=== PATIENT | female | born 1975 | race Asian ===

== ENCOUNTER 2018-08-21 19:30 | Emergency (ER) | payer MEDICAID, SELFPAY ==
[2018-08-21 19:47] VITALS: BP 115/60; PULSE 80; RESP 24; TEMP 36.3; O2SAT 99
--- NOTE | 2018-08-21 20:25 | DI.RAD_ITS ---
SYMPTOM/DIAGNOSIS: COUGH PA AND LATERAL CHEST: Comparison is made with 05/12/09. The heart is normal in size. The lungs are clear. The mediastinal structures and pleura appear intact. CONCLUSION: Normal chest.
--- NOTE | 2018-08-21 20:32 | W.ED.GENAD ---
Discharge Plan Disposition Patient Disposition: HOME Condition: Good Discharge Details Chief Complaint: Fever Clinical Impression: Cough Primary Care Provider: Madhavi Hernandez ED Provider: Arnulfo Talbot Home Meds and New Rx's Prescriptions: New codeine-guaifenesin [Guaifenesin AC] 10-100 mg/5 mL liquid 5 ml PO Q6H Qty: 120 RF: 0 No Action benzonatate 100 mg Capsule 100 mg PO RF: 0 azithromycin [Zithromax] 250 mg Tablet 250 mg PO DAILY AM RF: 0 ibuprofen [Advil] 200 mg Tablet 400 mg PO PRN PRNRF: 0 Discharge Instructions Instructions: Acute Cough (ED) Additional Instructions: Your chest x-ray shows no evidence of severe pneumonia. Please continue taking your home medications, and azithromycin. Please also take the guaifenesin with codeine. If you notice any worsening of your symptoms, or any new symptoms such as vomiting, diarrhea, fever, chills, shortness of breath, chest pain, numbness, weakness, or fainting , please return immediately to the emergency department for reevaluation. Please follow up with your primary care provider as soon as possible for reassessment and reevaluation. As always, it was a pleasure participating in your medical care today. Referrals: Madhavi Hernandez [Primary Care Provider] - Medical Decision Making This is a pleasant 43-year-old female who presents today for evaluation of cough for the last week, worse in the last 3 days, with associated chills and fevers earlier. She was prescribed azithromycin and Tessalon Perles by her PCP and is taken 2 days of these as directed, she has had no significant improvement of her symptoms. Denies PE risk factors such as recent long car rides, immobilization, recent surgery, prior history of DVT or PE, family history of PE or DVT, morbid obesity, exogenous estrogen and smoking, hemoptysis, history of cancer. She denies any exposure to TB risk factors for this. Her does smoke. Exam demonstrates notably clear lungs, a near continuous dry cough. She is not on an TOYA inhibitor or ARB. No calf tenderness. Signs and symptoms are concerning for atypical pneumonia. We will get a chest x-ray, give lidocaine breathing treatment, and Robitussin with codeine. Vital signs are notably unremarkable, physical exam is very reassuring. 9 PM Patient is feeling much better after the inhaled lidocaine, as well the Robitussin with codeine. Chest x-ray results per virtual radiology show no evidence of acute pneumonia or process. I suspect his symptoms still from an atypical etiology, and recommend continuation of the azithromycin. No clinical evidence of a pulmonary embolism at this time as her signs and symptoms are clinically inconsistent with it. No other significant abnormality. We will give Rajiv with codeine for home use, recommend continuation of her medications at home. We discussed importance of close follow-up with her PCP. I have extensively reviewed the treatment plan and discharge instructions with the patient. I have addressed all patient concerns at this time. The patient was made aware of what symptoms to monitor for that would warrant a return to the emergency department. Discussed the plan with the patient, they demonstrate verbal understanding and agreement with our assessment and plan at this time. FINDINGS: There are no old studies available for comparison. The lungs are clear of infiltrate. There are no pleural effusions or pneumothorax. The heart size and pulmonary vascularity are normal. IMPRESSION: No active disease. Dictated and Authenticated by: Rob Zelaya MD. Ordering:JAYNA Arredondo MD HPI General Date/Time Provider Initiated Documentation: 08/21/18 19:57. HPI Narrative: This is a 43-year-old female with no significant past medical history who presents today with complaints of cough for the last week. Is been notably worse in the last 3 days. She did see her PCP 2 days ago and was prescribed azithromycin for which she has been taking as directed as well as Tessalon Perles. This is not been improving her symptoms. She does admit to mild fever earlier yesterday, and mild chills, but this is resolved. Her main complaint is the frequency and severity of her cough. She denies any red flags of hemoptysis or productivity, but continues to have a notably dry nonproductive cough that keeps her from sleeping at night, to become notably bothersome. She denies any tobacco use but her does smoke. She did recently come back from [facility] about a week ago, but denies any exposure to presents, TB wards, or other hospital systems. She denies any other complaints modifying factors. She does admit to annually getting symptoms similar to this, but it has not been this severe for quite some time. Of note she did take a breathing treatment at home once with an inhaler and this did not change her symptoms. Related Data Home Medications Medication Instructions Recorded Confirmed azithromycin [Zithromax] 250 mg PO DAILY AM 08/21/18 08/21/18 benzonatate 100 mg PO 08/21/18 codeine-guaifenesin [Guaifenesin 5 ml PO Q6H #120 ml 08/21/18 AC] ibuprofen [Advil] 400 mg PO PRN PRN 08/21/18 08/21/18 Previous Rx's Medication Instructions Recorded codeine-guaifenesin [Guaifenesin 5 ml PO Q6H #120 ml 08/21/18 AC] Allergies Allergy/AdvReac Type Severity Reaction Status Date / Time fruits AdvReac Intermediate throat and Uncoded 08/21/18 19:51 ears get itchy General Stated Complaint: Fever OSVALDO: 3 Review of Systems Review of Systems All systems reviewed & are unremarkable except as noted in HPI and below PFSH Social History Smoking/Tobacco Use Status: Never Do you feel safe in your relationship?: Yes Exam Narrative Exam Narrative: 1.Const: Well-nourished, Well-developed, appearing stated age 2.Eyes: PERRL, no conjunctival injection, and symmetrical lids. 3.ENT: Atraumatic external nose and ears. Moist MM. Neck: Symmetric, trachea midline, No thyromegaly. 4.CVS: +S1/S2, No murmurs or gallops. Peripheral pulses 2+ and equal in all extremities. Brisk capillary refill in all extremities. 5.RESP: Unlabored respiratory effort. Clear to auscultation bilaterally. No wheezes rales or rhonchi 6.GI: Soft, Nontender/Nondistended, No hepatosplenomegaly. No guarding or rebound. 7.MSK: Normocephalic/Atraumatic, Extremities w/o deformity or ttp No cyanosis or clubbing, Normal movement of all extremities, no calf tenderness, no pitting edema 8.Skin: Warm, Dry. No rashes or lesions. 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 Sensation grossly intact, no focal neurologic deficits. 10.Psych: (AAO) x3. Appropriate mood and affect Course Vital Signs Temperature 36.3 C L 08/21/18 19:47 Pulse 80 08/21/18 19:47 Respiratory Rate 24 /10/19 19:47 Blood Pressure 115/60 08/21/18 19:47 Pulse Oximetry 99 08/21/18 19:47 Temperature 36.3 C L 08/21/18 19:47 Temperature Source Temporal Artery Scan 08/21/18 19:47 Pulse 80 08/21/18 19:47 Respiratory Rate 24 08/21/18 19:47 Blood Pressure 115/60 08/21/18 19:47 Blood Pressure Position Sitting 08/21/18 19:47 Pulse Oximetry 99 08/21/18 19:47 Oxygen Delivery Method Room Air 08/21/18 19:47 Oxygen Flow Rate 0 08/21/18 19:47 Pain Level 7 08/21/18 19:47
[2018-08-21] MEDS: guaiFENesin/CODEINE PHOSPHATE 10 ML CUP PO (21:01)
--- NOTE | 2018-08-21 21:04 | DI.VRAD_ITS ---
EXAM: XR Chest, 2 Views EXAM DATE/TIME: 08/21/2018 8:09 PM CLINICAL HISTORY: 43 years old, female; Patient HX: Cough x 7days, non productive, non smoker TECHNIQUE: Imaging protocol: XR of the chest, 2 views. COMPARISON: No relevant prior studies available. FINDINGS: There are no old studies available for comparison. The lungs are clear of infiltrate. There are no pleural effusions or pneumothorax. The heart size and pulmonary vascularity are normal. IMPRESSION: No active disease. Dictated and Authenticated by: Rob Zelaya MD. Ordering:JAYNA Arredondo MD
== END 2018-08-21 21:37 | disposition home or self-care (01) ==
PROVIDERS: Emergency Provider Student in an Organized Health Care Education/Training Program; PCP Nurse Practitioner Family
DX: R05 Cough (principal); R50.9 Fever, unspecified
CPT/HCPCS: 99283; 71046

== ENCOUNTER 2019-05-13 08:25 | Outpatient (REF) | payer MEDICAID, SELFPAY ==
[2019-05-13 19:11] LABS: ALT 32 U/L (14-59); AST 22 U/L (15-37); Alkaline Phosphatase 46 U/L (46-116); Anion Gap 5.9 mmol/L (3-11); BUN 12 mg/dL (7-18); Bilirubin, Total 0.4 mg/dL (0.2-1.0); CO2 31.1 mmol/L (21.0-32.0); CREATININE 0.72 mg/dL (0.55-1.02); Calcium 8.9 mg/dL (8.5-10.1); Chloride 105 mmol/L (98-107); Glucose 89 mg/dL (74-106); Potassium 3.7 mmol/L (3.5-5.1); Sodium 142 mmol/L (136-145); Total Protein 7.4 g/dL (6.4-8.2)
== END 2019-05-13 08:45 ==
LOC: NCHCN 08:25
PROVIDERS: PCP Nurse Practitioner Family; Visit Provider Nurse Practitioner Family
DX: Z13.228 Encounter for screening for other metabolic disorders (principal); Z00.00 Encounter for general adult medical examination without abnormal findings
CPT/HCPCS: 80053

== ENCOUNTER 2020-06-02 18:06 | Outpatient (REF) | payer MEDICAID, SELFPAY ==
--- NOTE | 2020-06-02 11:21 | PAPFT_PTH ---
PATIENT: Juan M Barfield LOC: [facility] U#:[id number] AGE/SX: 45/F ROOM: RE06/02/[address]: Madhavi Hernandez : 1975 BED: DIS: 06/02/2020 SPEC #: [id number] RECD: 06/02/20 18:13 STATUS: ANISA REQ #: [id number] VANESSA: 06/02/20 11:[address]: Madhavi Hernandez DEPT: [facility] Cytology RECD BY: Lauren Collins Tissues: 1 - CX/ENDOCX FOR PAP SMEARS Procedures: PAP THIN PREP/UVM Screening Comments: [id number]
[2020-06-02 18:10] LABS: HGB 13.2 g/dL (11.2-15.7); MCH 28.5 pg (27.0-33.0); MCV 86.4 fL (80-95); Platelet Count 235 10^3/uL (130-400); RBC 4.63 10^6/uL (3.93-5.22); RDW 12.4 % (11.7-14.6); RDW-SD 39.2 fL; WBC 3.55 10^3/uL (4.4-10.8)
[2020-06-02 18:31] LABS: Anion Gap 6.3 mmol/L (3-11); BUN 14 mg/dL (7-18); CO2 29.7 mmol/L (21.0-32.0); CREATININE 0.7 mg/dL (0.55-1.02); Calcium 8.6 mg/dL (8.5-10.1); Calculated LDL 56 mg/dL (<100); Chloride 107 mmol/L (98-107); Cholesterol 125 mg/dL (<200); Glucose 88 mg/dL (74-106); HDL Cholesterol 57 mg/dL (40-60); Potassium 3.9 mmol/L (3.5-5.1); Sodium 143 mmol/L (136-145); Triglyceride 60 mg/dL (<150)
== END 2020-06-02 18:07 | disposition home or self-care (01) ==
LOC: NCHCN 18:06
PROVIDERS: PCP Nurse Practitioner Family; Visit Provider Nurse Practitioner Family
DX: Z12.4 Encounter for screening for malignant neoplasm of cervix (principal); Z13.220 Encounter for screening for lipoid disorders; Z13.228 Encounter for screening for other metabolic disorders; Z00.00 Encounter for general adult medical examination without abnormal findings
CPT/HCPCS: 80048; 80061; 85027; 88142

== ENCOUNTER 2020-09-28 17:02 | Outpatient (REF) | payer MEDICAID, SELFPAY ==
[2020-09-28 19:21] LABS: Abs Immature Grans 0.01 10^3/uL (0.0-0.06); Absolute Basophil Count 0.01 10^3/uL (0.0-0.2); Absolute Eosinophil Count 0.02 10^3/uL (0.0-0.7); Absolute Lymphocyte Count 0.72 10^3/uL (1.2-3.4); Absolute Monocyte Count 0.45 10^3/uL (0.1-0.8); Absolute Neutrophil Count 5.22 10^3/uL (1.2-6.7); Basophils % 0.2; Eosinophils % 0.3; HCT 37.5 % (36.0-46.0); HGB 12.6 g/dL (11.2-15.7); Immature Grans % 0.2; Lymphocytes % 11.2; MCH 27.9 pg (27.0-33.0); MCHC 33.6 % (32.0-36.0); MCV 83.1 fL (80-95); MPV 11.2 fL (8.0-11.0); Neutrophils % 81.1; Nucleated RBC 0 %; Platelet Count 213 10^3/uL (130-400); RBC 4.51 10^6/uL (3.93-5.22); RDW 12.6 % (11.7-14.6); RDW-SD 38.2 fL; WBC 6.43 10^3/uL (4.4-10.8)
== END 2020-09-28 17:03 | disposition home or self-care (01) ==
LOC: NCHCN 17:02
PROVIDERS: PCP Nurse Practitioner Family; Visit Provider Nurse Practitioner Family
DX: N10 Acute pyelonephritis (principal)
CPT/HCPCS: 87077; 85025; 87086; 87186

== ENCOUNTER 2020-09-29 15:06 | Observation (INO) | payer MEDICAID, SELFPAY ==
--- NOTE | 2020-09-29 15:39 | ED.GENADUL_ITS ---
Discharge Plan Disposition Patient Disposition: [facility] INPATIENT Condition: Stable Discharge Details Clinical Impression: Pyelonephritis, Fever, Back pain Admit Date/Time: 09/29/20 18:19 Admit Provider: Sami Buchanan Attending Provider: Sami Buchanan Primary Care Provider: Madhavi Hernandez ED Provider: Amy Sebastian Medical Decision Making 45-year-old mandarin speaking female presents with UTI symptoms, lower back pain, fever, headache for the past few weeks and sent by PCP for possible pyelonephritis. History obtained through language line. Temp 97.9 on arrival. Patient appears uncomfortable but nontoxic. No meningeal signs. Abdomen soft nontender. No CVA tenderness. Suspect most likely UTI versus pyelonephritis. Suspect most likely her headache and neck pain likely secondary to somatic referred pain/musculoskeletal/myalgais and dehydration. Will place an IV, bolus IV fluids, screening labs, urinalysis and CT abdomen/pelvis. Will give Toradol and Phenergan and reassess. Labs and imaging reviewed. White blood cell count normal at 8. Urinalysis notes 10-20 WBCs, trace leukocyte esterase, with rare bacteria and negative nitrates - these findings may be due to her doses of Cipro. Urine culture sent. CT abdomen and pelvis noted: IMPRESSION: Abnormal right renal nephrogram with foci of low attenuation in the anterior and posterior renal cortex, suggestive of pyelonephritis. Results given to patient through language line. She states her headache and neck pain are resolved but still has some lower back pain and feels fatigued. Will admit for pain control, IV antibiotics, IV fluids and continued monitoring. Case discussed with hospitalist who accepts patient for admission. Medical Records Medical records reviewed: Yes I reviewed the patient's medical records. Imaging Data Radiologic Study: Radiologist's impression: CT Abdomen And Pelvis With Contrast Exam date and time: 09/29/2020 4:12 PM Age: 45 years old Clinical indication: Other: Lower back pain, dysuria, fever, R/O pyelo, stone TECHNIQUE: Imaging protocol: Computed tomography of the abdomen and pelvis with contrast. Radiation optimization: All CT scans at this facility use at least one of these dose optimization techniques: automated exposure control; mA and/or kV adjustment per patient size (includes targeted exams where dose is matched to clinical indication); or iterative reconstruction. Contrast material: OMNIPAQUE; Contrast volume: 100 ml; Contrast route: INTRAVENOUS (IV); COMPARISON: CT ABD PELVIS WITH CONTRAST 08/06/2017 4:52 PM FINDINGS: Lungs: The visualized lung bases are clear. Liver: There is a subcentimeter low density lesion in the dome of the liver which is too small to characterize. No evidence for a mass. Gallbladder and bile ducts: Unremarkable. No calcified stones. No ductal dilation. Pancreas: Unremarkable. No ductal dilation. Spleen: Unremarkable. No splenomegaly. Adrenal glands: Unremarkable. No mass. Kidneys and ureters: There is abnormal right nephrogram with abnormal low attenuation in the anterior and posterior renal cortex suggestive of pyelonephritis. There is no hydronephrosis. Stomach and bowel: Unremarkable. No obstruction. No mucosal thickening. Appendix: No evidence of appendicitis. Intraperitoneal space: Unremarkable. No free air. No significant fluid collection. Vasculature: Unremarkable. No abdominal aortic aneurysm. Lymph nodes: Unremarkable. No enlarged lymph nodes. Urinary bladder: Unremarkable as visualized. Reproductive: The uterus is enlarged and heterogeneous likely due to fibroids. Bones/joints: Unremarkable. No acute fracture. Soft tissues: Unremarkable. IMPRESSION: Abnormal right renal nephrogram with foci of low attenuation in the anterior and posterior renal cortex, suggestive of pyelonephritis. Lab Data Lab results reviewed: Yes I reviewed the patient's lab results. Labs: 09/29/20 16:25 Urine - Reflex from Ua Urine Culture - Pending Laboratory Tests Range/Units 09/29/20 09/29/20 09/29/20 15:30 16:10 16:10 WBC (4.4-10.8) 10^3/uL 8.19 RBC (3.93-5.22) 10^6/uL 4.50 Hgb (11.2-15.7) g/dL 12.6 Hct (36.0-46.0) % 37.8 MCV (80-95) fL 84.0 MCH (27.0-33.0) pg 28.0 MCHC (32.0-36.0) % 33.3 RDW (11.7-14.6) % 12.5 Plt Count (130-400) 10^3/uL 196 MPV (8.0-11.0) fL 10.3 Immature Gran % 0.5 Neutrophils % 78.3 Lymphocytes % 9.9 Monocytes % 11.1 Eosinophils % 0.0 Basophils % 0.2 Nucleated RBC % % 0 Absolute Neutrophils (1.2-6.7) 10^3/uL 6.41 Absolute Lymphocytes (1.2-3.4) 10^3/uL 0.81 L Absolute Monocytes (0.1-0.8) 10^3/uL 0.91 H Absolute Eosinophils (0.0-0.7) 10^3/uL 0.00 Absolute Basophils (0.0-0.2) 10^3/uL 0.02 Sodium (136-145) mmol/L 135 L Potassium (3.5-5.1) mmol/L 3.6 Chloride (98-107) mmol/L 100 Carbon Dioxide (21.0-32.0) mmol/L 27.5 Anion Gap (3-11) mmol/L 7.5 BUN (7-18) mg/dL 10 Creatinine (0.55-1.02) mg/dL 0.8 Estimated GFR/1.73 m2 (mL/min/1.73m2) >= 60.00 Glucose (74-106) mg/dL 110 H Calcium (8.5-10.1) mg/dL 8.4 L Total Bilirubin (0.2-1.0) mg/dL 0.5 AST (15-37) U/L 12 L ALT (14-59) U/L 20 Alkaline Phosphatase (46-116) U/L 53 Total Protein (6.4-8.2) g/dL 7.7 Albumin (3.4-5.0) g/dL 3.3 L Lipase (73-393) U/L 84 Urine Color (Yellow) Urine Clarity (Clear) Urine pH (5-8) Ur Specific [place] (1.005-1.025) Urine Protein (Negative) mg/dL Urine Ketones (Negative) mg/dL Urine Blood (Negative) Urine Nitrite (Negative) Urine Bilirubin (Negative) Urine Urobilinogen (Up TO 0.2) EU/dL Ur Leukocyte Esterase (Negative) Urine RBC (0-2) HPF Urine WBC (0-5) HPF Ur Epithelial Cells (Negative) HPF Urine Crystals (Negative) HPF Urine Bacteria (Negative) HPF Urine Mucus (Negative) Urine Other (Negative) Ur Culture Indicated? Urine Glucose (Negative) mg/dL COVID-19 Source Nasal/Nares SARS-CoV-2 (PCR) (Negative) Negative Range/Units 09/29/20 16:25 WBC (4.4-10.8) 10^3/uL RBC (3.93-5.22) 10^6/uL Hgb (11.2-15.7) g/dL Hct (36.0-46.0) % MCV (80-95) fL MCH (27.0-33.0) pg MCHC (32.0-36.0) % RDW (11.7-14.6) % Plt Count (130-400) 10^3/uL MPV (8.0-11.0) fL Immature Gran % Neutrophils % Lymphocytes % Monocytes % Eosinophils % Basophils % Nucleated RBC % % Absolute Neutrophils (1.2-6.7) 10^3/uL Absolute Lymphocytes (1.2-3.4) 10^3/uL Absolute Monocytes (0.1-0.8) 10^3/uL Absolute Eosinophils (0.0-0.7) 10^3/uL Absolute Basophils (0.0-0.2) 10^3/uL Sodium (136-145) mmol/L Potassium (3.5-5.1) mmol/L Chloride (98-107) mmol/L Carbon Dioxide (21.0-32.0) mmol/L Anion Gap (3-11) mmol/L BUN (7-18) mg/dL Creatinine (0.55-1.02) mg/dL Estimated GFR/1.73 m2 (mL/min/1.73m2) Glucose (74-106) mg/dL Calcium (8.5-10.1) mg/dL Total Bilirubin (0.2-1.0) mg/dL AST (15-37) U/L ALT (14-59) U/L Alkaline Phosphatase (46-116) U/L Total Protein (6.4-8.2) g/dL Albumin (3.4-5.0) g/dL Lipase (73-393) U/L Urine Color (Yellow) Yellow Urine Clarity (Clear) Clear Urine pH (5-8) 7.0 Ur Specific [place] (1.005-1.025) 1.025 Urine Protein (Negative) mg/dL 30 H Urine Ketones (Negative) mg/dL Negative Urine Blood (Negative) Large H Urine Nitrite (Negative) Negative Urine Bilirubin (Negative) Negative Urine Urobilinogen (Up TO 0.2) EU/dL 0.2 Ur Leukocyte Esterase (Negative) Trace H Urine RBC (0-2) HPF 5-10 H Urine WBC (0-5) HPF 10-20 H Ur Epithelial Cells (Negative) HPF Moderate Urine Crystals (Negative) HPF Negative Urine Bacteria (Negative) HPF Rare Urine Mucus (Negative) Negative Urine Other (Negative) Few Transitional Ur Culture Indicated? Yes Urine Glucose (Negative) mg/dL Negative COVID-19 Source SARS-CoV-2 (PCR) (Negative) HPI General Mode of arrival: ambulatory . Date/Time Provider Initiated Documentation: 09/29/20 15:11 . Limitations to Documentation: no limitations . Information obtained by: patient . HPI Narrative: Patient is a 45-year-old female with a previous history of pyelonephritis a few years ago who presents w ith urinary frequency and urgency and lower back pain for the past 2 weeks, and fever 101.7 yesterday. Patient states she has also had intermittent headache and neck pain. Her primary care doctor started her on Cipro yesterday for possible UTI or pyelonephritis. She states she took her doses yesterday and took 1 this morning but vomited right after. She has not taken any Tylenol or ibuprofen today. She denies any chest pain, shortness of breath, coughing or diarrhea. She states she is fully vaccinated and denies any known exposure to Covid or recent travel. Related Data Home Medications Medication Instructions Recorded Confirmed ibuprofen [Advil] 400 mg PO PRN PRN 08/21/18 09/29/20 ciprofloxacin HCl [Cipro] 500 mg PO BID 09/29/20 09/29/20 Allergies Allergy/AdvReac Type Severity Reaction Status Date / Time fruits AdvReac Intermediate throat and Uncoded 09/29/20 15:49 ears get itchy General OSVALDO: 3 Review of Systems All systems reviewed & are unremarkable except as noted in HPI and below Constitutional Constitutional: Reports as per HPI, Denies chills and Denies fever(s) Eyes Eyes: Denies blurry vision ENT Ears, Nose, Mouth, and Throat: Denies dizziness, Denies sore throat and Denies throat swelling Cardiovascular Cardiovascular: Denies chest pain and Denies dyspnea Respiratory Respiratory: Denies cough and Denies dyspnea Gastrointestinal Gastrointestinal: Denies abdominal pain, Denies diarrhea and Denies vomiting Genitourinary Genitourinary: Denies hematuria, Reports difficulty voiding, Reports dysuria, Reports urinary hesitancy and Reports urinary urgency Musculoskeletal Musculoskeletal: Reports back pain and Denies numbness Integumentary/Breasts Skin/Breast: Denies lesions and Denies rash Neurologic Neurologic: Denies dizziness, Denies localized weakness and Denies numbness Allergic/Immunologic Allergic/Immunologic: Denies throat swelling PFSH Medical History Pyelonephritis Surgical History H/O section Social History Smoking/Tobacco Use Status: Never Smoking risk assessment performed?: Yes Alcohol Intake: never Drug use: Never Substance use type: does not use Do you feel safe at home: Yes Do you feel safe in your relationship?: Yes Exam Const General: cooperative and no acute distress Orientation: alert, awake and oriented x3 HENMT Head: normal to inspection Mouth: oral mucosae normal Eyes General: appearance normal, both eyes and all related structures Neck Neck: normal visual inspection Resp Effort & Inspection: normal respiratory effort and able to speak in complete sentences Auscultation: clear to auscultation bilaterally Cardio Rate: regular rate Rhythm: regular rhythm GI Inspection: normal to inspection Palpation: soft, not firm, not rigid and nontender Auscultation: no hypoactive bowel sounds Back/Spine/Pelvis Back: No no CVA tenderness Thoracic/Lumbar Spine: thoracic and lumbar spine normal to inspection Skin General skin exam: no rashes or lesions noted Neuro General: patient alert, patient awake, patient oriented x3, moves all extremities, no meningeal signs and no focal motor deficits Motor: muscle tone normal throughout and strength 5/5 throughout Extrem General: normal to inspection, full ROM, capillary refill normal and no edema Psych Appearance: grossly normal Affect: normal affect
[2020-09-29 15:42] LABS: Source Nasal/Nares
[2020-09-29 15:43] VITALS: BP 106/52; PULSE 98; RESP 18; TEMP 36.6; O2SAT 99
--- NOTE | 2020-09-29 16:00 | DI.CT_ITS ---
Exam(s) CT ABDOMEN PELVIS W EXAM: CT ABDOMEN PELVIS W CLINICAL HISTORY: lower back pain, dysuria, fever, r/o pyelo, stone. TECHNIQUE: Imaging Protocol: Axial computed tomography images with coronal and sagittal reformatted images were created and reviewed CONTRAST MATERIAL: Intravenous: Omnipaque 100cc Oral: None COMPARISON: CT ABD PELVIS WITH CONTRAST from 08/06/2017 FINDINGS: VISUALIZED LUNG BASES: There is a small centrally lucent pleural base nodule in the lateral basal seg ment right lower lobe which measures 5 millimeters, slightly larger than previous. No pleural effusi ons. No additional nodule seen in the lung bases.. ABDOMEN: There is no ascites. LIVER: There is a subcapsular lesion in the superior aspect of the right hepatic lobe which measures 8 x 5 millimeters and is probably a benign hemangioma. No other focal hepatic findings. No dilatati on of intrahepatic ducts. GALLBLADDER/BILIARY: No obvious gallbladder pathology. CBD is not dilated. PANCREAS: No evidence of pancreatic mass nor dilatation of the pancreatic duct. SPLEEN: Spleen is not enlarged. No obvious intrasplenic lesions. Splenic and portal veins are paten t. ADRENALS: There are no significant adrenal masses. KIDNEYS:No significant findings in the left kidney. The common the right kidney there are areas of a bnormal enhancement both inferiorly and anteriorly which are suspicious for infectious etiology. The re are no calculi. No hydronephrosis. No hydroureter.. ABDOMINAL AORTA: Abdominal aorta is not enlarged. LYMPH NODES:There is no retroperitineal nor paraaortic adenopathy. ABDOMINAL WALL: No evidence of significant anterior abdominal wall hernia. GI: There is no evidence of bowel obstruction. PELVIS: GI: No evidence of appendicitis.No evidence of sigmoid diverticulitis. LYMPH NODES: There is no intrapelvic nor inguinal adenopathy. REPRODUCTIVE: Uterus is heterogeneous most probably related to uterine fibroids. URINARY BLADDER: No calculi nor obvious masses evident OSSEOUS: No significant osseous lesions. IMPRESSION: 1. Multilevel abnormal findings in the right kidney with foci of low-attenuation both the anterior an d posterior-inferior renal cortex, suggestive of probable infectious etiology, specifically multifoca l pyelonephritis. Significant risk for renal carbuncle-abscess formation. Close follow-up recommend ed. Opposite-left kidney appears unremarkable. 2. Small subcapsular hemangioma in the superior aspect of the right hepatic lobe noted 3. Small centrally hypodense 5 millimeter nodule again noted in the posterior right lung base. No pl eural effusions RADIATION DOSE DELIVERED: 722.4mGy.cm Total DLP DATA REPOSITORY: All CT scans at this facility are submitted to the National Radiology Data Registry (NRDR) Dose Index Registry (DIR) with the [employer] (A[employer]). RADIATION OPTIMIZATION: All CT scans at this facility use at least one of these dose optimization te chniques: automated exposure control; mA and/or kV adjustment per patient size (includes targeted exa ms where dose is matched to clinical indication); or iterative reconstruction.
[2020-09-29 16:31] LABS: Abs Immature Grans 0.04 10^3/uL (0.0-0.06); Absolute Basophil Count 0.02 10^3/uL (0.0-0.2); Absolute Lymphocyte Count 0.81 10^3/uL (1.2-3.4); Absolute Monocyte Count 0.91 10^3/uL (0.1-0.8); Absolute Neutrophil Count 6.41 10^3/uL (1.2-6.7); Basophils % 0.2; HCT 37.8 % (36.0-46.0); HGB 12.6 g/dL (11.2-15.7); Immature Grans % 0.5; Lymphocytes % 9.9; MCHC 33.3 % (32.0-36.0); MPV 10.3 fL (8.0-11.0); Monocytes % 11.1; Neutrophils % 78.3; Nucleated RBC 0 %; Platelet Count 196 10^3/uL (130-400); RDW 12.5 % (11.7-14.6); WBC 8.19 10^3/uL (4.4-10.8)
[2020-09-29 16:32] LABS: Bilirubin Negative (Negative); Blood Large (Negative); Clarity Clear (Clear); Glucose Negative (Negative); Ketones Negative (Negative); Leukocyte Esterase Trace (Negative); Nitrite Negative (Negative); Specific Gravity 1.025 (1.005-1.025); Urobilinogen 0.2 EU/dL (Up TO 0.2)
[2020-09-29 16:37] LABS: ALT 20 U/L (14-59); AST 12 U/L (15-37); Albumin 3.3 g/dL (3.4-5.0); Alkaline Phosphatase 53 U/L (46-116); Anion Gap 7.5 mmol/L (3-11); BUN 10 mg/dL (7-18); Bilirubin, Total 0.5 mg/dL (0.2-1.0); CO2 27.5 mmol/L (21.0-32.0); CREATININE 0.8 mg/dL (0.55-1.02); Calcium 8.4 mg/dL (8.5-10.1); Chloride 100 mmol/L (98-107); Glucose 110 mg/dL (74-106); Lipase 84 U/L (73-393); Potassium 3.6 mmol/L (3.5-5.1); Sodium 135 mmol/L (136-145); Total Protein 7.7 g/dL (6.4-8.2)
[2020-09-29 16:38] LABS: COVID-19 PCR Negative (Negative)
[2020-09-29] MEDS: Omnipaque 350 MG/ML 100 ML BTL IJ (16:49)
[2020-09-29] MEDS: Normal Saline - Diluent 50 ML VIAL IV (16:50)
[2020-09-29] MEDS: Ketorolac 30 MG/ML VIAL IVP (16:51)
[2020-09-29] MEDS: Normal Saline 1,000 ML 1000 ML IV ×2 (16:51→18:21)
[2020-09-29] MEDS: Normal Saline Flush 10 ML SYR IVP (16:51)
[2020-09-29 17:10] LABS: Epithelial Cells Moderate HPF (Negative)
[2020-09-29 17:11] LABS: Bacteria Rare HPF (Negative); C & S Indicated? Yes; Crystals Negative HPF (Negative); Mucus Negative (Negative); Other Cells Few Transitional (Negative)
--- NOTE | 2020-09-29 17:14 | DI.VRAD_ITS ---
PROCEDURE INFORMATION: Exam: CT Abdomen And Pelvis With Contrast Exam date and time: 09/29/2020 4:12 PM Age: 45 years old Clinical indication: Other: Lower back pain, dysuria, fever, R/O pyelo, stone TECHNIQUE: Imaging protocol: Computed tomography of the abdomen and pelvis with contrast. Radiation optimization: All CT scans at this facility use at least one of these dose optimization techniques: automated exposure control; mA and/or kV adjustment per patient size (includes targeted exams where dose is matched to clinical indication); or iterative reconstruction. Contrast material: OMNIPAQUE; Contrast volume: 100 ml; Contrast route: INTRAVENOUS (IV); COMPARISON: CT ABD PELVIS WITH CONTRAST 08/06/2017 4:52 PM FINDINGS: Lungs: The visualized lung bases are clear. Liver: There is a subcentimeter low density lesion in the dome of the liver which is too small to characterize. No evidence for a mass. Gallbladder and bile ducts: Unremarkable. No calcified stones. No ductal dilation. Pancreas: Unremarkable. No ductal dilation. Spleen: Unremarkable. No splenomegaly. Adrenal glands: Unremarkable. No mass. Kidneys and ureters: There is abnormal right nephrogram with abnormal low attenuation in the anterior and posterior renal cortex suggestive of pyelonephritis. There is no hydronephrosis. Stomach and bowel: Unremarkable. No obstruction. No mucosal thickening. Appendix: No evidence of appendicitis. Intraperitoneal space: Unremarkable. No free air. No significant fluid collection. Vasculature: Unremarkable. No abdominal aortic aneurysm. Lymph nodes: Unremarkable. No enlarged lymph nodes. Urinary bladder: Unremarkable as visualized. Reproductive: The uterus is enlarged and heterogeneous likely due to fibroids. Bones/joints: Unremarkable. No acute fracture. Soft tissues: Unremarkable. IMPRESSION: Abnormal right renal nephrogram with foci of low attenuation in the anterior and posterior renal cortex, suggestive of pyelonephritis. Dictated and Authenticated by: Gordon Schwartz MD. Ordering:FLORIDA Reyes MD
[2020-09-29] MEDS: MORPHine 4 MG/ML SYR IVP (18:20)
[2020-09-29] MEDS: ACETAMINOPHEN 1,000 MG/100 ML BTL 400 MG IVPB (18:20)
[2020-09-29] MEDS: cefTRIAXone 1 GM/50 ML BAG IVPB (18:45)
[2020-09-29 19:30] VITALS: BP 93/57; PULSE 62; RESP 16; TEMP 36.3; O2SAT 99
--- NOTE | 2020-09-29 20:41 | HPE_ITS ---
Date of service: 09/29/20 Time of Service: 20:42 Assessment and Plan Assessment and plan (1) Pyelonephritis: Status: Acute Assessment and plan: Not likely a failure of ciprofloxacin since she essentially had only one dose prior to admission. However, was started on Rocephin in the ED and will continue. She received 2 liters of NS in the ED. Normal BUN and creatinine. Cont NS at 75ml/hr and can likely d/c in the AM. Currently no fluid losses through emesis or diarrhea. Culture pending. PRN IV morphine or Toradol for pain. PRN phenergan for N/V. (2) Discharge planning issues: Status: Acute Assessment and plan: Will likely d/c on oral antibiotics with no other needs than to f/u with PCP. History of Present Illness History of Present Illness Chief Complaint: Low back pain, urinary frequency and urgency Narrative: This is a 45 yo female with a PMH of pyelonephritis 3 years ago. She presented to the ED with appx 2 week history of bilateral low back pain and urinary frequency and urgency. She endorsed a fever of 101.7 the day prior to admission. She presented to her PCP and was started on Ciprofloxacin; 2 doses taken prior to admission. She did vomit immediately after taking the second dose. She also endorsed an intermittent headache and posterior neck pain. No SOA/cough/diarrhea. In the ED her urine was positive for 10-20 WBC's, tr leukocyte esterase, rare bacteria. CT abd/pelvis showed abnormal right renal nephrogram with foci of low attenuation in the anterior and posterior renal cortex, suggestive of pyelonephritis. Rocephin given in the ED. Review of Systems All systems reviewed & are unremarkable except as noted in HPI and below PFSH Medical History Pyelonephritis Surgical History H/O section Social History Smoking/Tobacco Use Status: Never Smoking risk assessment performed?: Yes Alcohol Intake: never Drug use: Never Substance use type: does not use Do you feel safe at home: Yes Do you feel safe in your relationship?: Yes Meds Allergies and Home Medications Allergies Allergy/AdvReac Type Severity Reaction Status Date / Time fruits AdvReac Intermediate throat and Uncoded 09/29/20 15:49 ears get itchy Home Medications Medication Instructions Recorded Confirmed Type ibuprofen [Advil] 400 mg PO PRN PRN 08/21/18 09/29/20 History ciprofloxacin HCl [Cipro] 500 mg PO BID 09/29/20 09/29/20 History Exam Const General: cooperative and no acute distress Nutritional Appearance: thin Orientation: alert and oriented x3 Eyes General: appearance normal, both eyes and all related structures Sclera: sclerae normal Neck Neck: full ROM Resp Effort & Inspection: normal respiratory effort Auscultation: clear to auscultation bilaterally Cardio Rate: regular rate Rhythm: regular rhythm Heart Sounds: S1 normal and S2 normal GI Palpation: soft and nontender Auscultation: normal bowel sounds Back/Spine/Pelvis Back: no CVA tenderness Skin General skin exam: no rashes or lesions noted Extrem General: no pedal edema and no calf tenderness Results Labs Result diagrams: 09/29/20 16:10 09/29/20 16:10 Labs: Laboratory Results - last 24 hr 09/29/20 09/29/20 09/29/20 15:30 16:10 16:10 WBC 8.19 RBC 4.50 Hgb 12.6 Hct 37.8 MCV 84.0 MCH 28.0 MCHC 33.3 RDW 12.5 Plt Count 196 MPV 10.3 Immature Gran % 0.5 Neutrophils % 78.3 Lymphocytes % 9.9 Monocytes % 11.1 Eosinophils % 0.0 Basophils % 0.2 Nucleated RBC % 0 Absolute Neutrophils 6.41 Absolute Lymphocytes 0.81 L Absolute Monocytes 0.91 H Absolute Eosinophils 0.00 Absolute Basophils 0.02 Sodium 135 L Potassium 3.6 Chloride 100 Carbon Dioxide 27.5 Anion Gap 7.5 BUN 10 Creatinine 0.8 Estimated GFR/1.73 m2 >= 60.00 Glucose 110 H Calcium 8.4 L Total Bilirubin 0.5 AST 12 L ALT 20 Alkaline Phosphatase 53 Total Protein 7.7 Albumin 3.3 L Lipase 84 Urine Color Urine Clarity Urine pH Ur Specific [place] Urine Protein Urine Ketones Urine Blood Urine Nitrite Urine Bilirubin Urine Urobilinogen Ur Leukocyte Esterase Urine RBC Urine WBC Ur Epithelial Cells Urine Crystals Urine Bacteria Urine Mucus Urine Other Ur Culture Indicated? Urine Glucose COVID-19 Source Nasal/Nares SARS-CoV-2 (PCR) Negative 09/29/20 16:25 WBC RBC Hgb Hct MCV MCH MCHC RDW Plt Count MPV Immature Gran % Neutrophils % Lymphocytes % Monocytes % Eosinophils % Basophils % Nucleated RBC % Absolute Neutrophils Absolute Lymphocytes Absolute Monocytes Absolute Eosinophils Absolute Basophils Sodium Potassium Chloride Carbon Dioxide Anion Gap BUN Creatinine Estimated GFR/1.73 m2 Glucose Calcium Total Bilirubin AST ALT Alkaline Phosphatase Total Protein Albumin Lipase Urine Color Yellow Urine Clarity Clear Urine pH 7.0 Ur Specific [place] 1.025 Urine Protein 30 H Urine Ketones Negative Urine Blood Large H Urine Nitrite Negative Urine Bilirubin Negative Urine Urobilinogen 0.2 Ur Leukocyte Esterase Trace H Urine RBC 5-10 H Urine WBC 10-20 H Ur Epithelial Cells Moderate Urine Crystals Negative Urine Bacteria Rare Urine Mucus Negative Urine Other Few Transitional Ur Culture Indicated? Yes Urine Glucose Negative COVID-19 Source SARS-CoV-2 (PCR) Last Vital Signs Temp 36.6 C 09/29/20 15:43 Pulse 98 H 09/29/20 15:43 Resp 18 09/29/20 15:43 BP 106/52 L 09/29/20 15:43 Pulse Ox 99 09/29/20 15:43
[2020-09-29] MEDS: Normal Saline 1,000 ML 75 ML IV (20:59)
[2020-09-30 01:00] VITALS: BP 90/53; PULSE 97; RESP 16; TEMP 36.4; O2SAT 99
[2020-09-30 03:57] VITALS: BP 86/56; PULSE 80; RESP 18; TEMP 36.4; O2SAT 99
[2020-09-30] MEDS: Normal Saline 1,000 ML 150 ML IV (05:34)
[2020-09-30 06:59] LABS: Abs Immature Grans 0.01 10^3/uL (0.0-0.06); Absolute Basophil Count 0.01 10^3/uL (0.0-0.2); Absolute Eosinophil Count 0.08 10^3/uL (0.0-0.7); Absolute Lymphocyte Count 0.93 10^3/uL (1.2-3.4); Absolute Monocyte Count 0.69 10^3/uL (0.1-0.8); Absolute Neutrophil Count 3.16 10^3/uL (1.2-6.7); Basophils % 0.2; Eosinophils % 1.6; HCT 33.8 % (36.0-46.0); HGB 11.2 g/dL (11.2-15.7); Immature Grans % 0.2; Lymphocytes % 19.1; MCH 28.1 pg (27.0-33.0); MCHC 33.1 % (32.0-36.0); MCV 84.9 fL (80-95); MPV 10.3 fL (8.0-11.0); Monocytes % 14.1; Neutrophils % 64.8; Nucleated RBC 0 %; Platelet Count 163 10^3/uL (130-400); RBC 3.98 10^6/uL (3.93-5.22); RDW 12.9 % (11.7-14.6); RDW-SD 40.3 fL; WBC 4.88 10^3/uL (4.4-10.8)
[2020-09-30 07:09] LABS: Anion Gap 6.8 mmol/L (3-11); BUN 8 mg/dL (7-18); CO2 26.2 mmol/L (21.0-32.0); CREATININE 0.6 mg/dL (0.55-1.02); Calcium 7.4 mg/dL (8.5-10.1); Chloride 109 mmol/L (98-107); Glucose 100 mg/dL (74-106); Potassium 3.7 mmol/L (3.5-5.1); Sodium 142 mmol/L (136-145)
[2020-09-30] MEDS: Enoxaparin 40 MG/0.4 ML SYR SC (08:05)
[2020-09-30] MEDS: cefTRIAXone 1 GM/50 ML BAG IVPB (08:05)
[2020-09-30 08:06] VITALS: BP 92/56; PULSE 81; RESP 16; TEMP 37.5; O2SAT 100
--- NOTE | 2020-09-30 09:15 | INITIAL_ITS ---
- If Service Date Differs Date of service: 09/30/20 Time of Service: 09:15 Care Management Initial Assess REASON FOR HOSPITALIZATION:: Pylonephritis, Fever, Back Pain PAST MEDICAL HISTORY/PAST SURGICAL HISTORY:: H/O Section PREVIOUS FUNCTIONAL STATUS/SOCIAL/FAMILY SUPPORTS:: Juan M lives in [facility] with her Kirt and 2 children. She also has a daughter in college. 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 CURRENT FUNCTIONAL STATUS:: Juan M was lying in bed when CM met with her. Juan M was pleasant and open to communicating with CM while she was on the phone with her daughter Bertha. This was helpful when translation was needed. Juan M stated that she was feeling better today and was able to eat small portions of food. ADVANCE DIRECTIVES:: Not on file, CM gave patient a copy Has patient been provided with info about the portal/API?: Yes Did the patient sign up for the portal?: No CODE STATUS:: Full Code INSURANCE COVERAGE / FINANCIAL ISSUES:: Medicaid. 100% Financial Assistance CURRENT HOME/COMMUNITY SERVICES/EQUIPMENT:: None PRIMARY CARE PHYSICIAN:: Madhavi Hernandez POTENTIAL DISCHARGE NEEDS:: Follow up appointment with PCP PATIENT/FAMILY EDUCATION NEEDS:: Review discharge instructions and plan to follow up with community providers, ask me three. ANTICIPATED BARRIERS TO DISCHARGE:: Language barrier, daughter Bertha is helpful with communcation using facetime TRANSPORTATION:: Via private vehicle PLAN:: Juan M will be discharged home on oral antibiotics when medically cleared, with no new services. She will need to follow up with her PCP. CM to follow and support.
--- NOTE | 2020-09-30 12:57 | PHA.REVIEW ---
Pharmacy Admission Review - Admission Clinical Review (Last Reviewed 09/29/20 @ 20:49 by Sami Buchanan MD) Pyelonephritis (Acute) Fever (Acute) Back pain (Acute) Pyelonephritis (Acute) Discharge planning issues (Acute) fruits Adverse Reaction (Intermediate, Uncoded 09/29/20 15:49) throat and ears get itchy Resuscitation Status Full Code Height 5 ft 4 in Weight 53.7 kg - Renal Dosing Renal Dosing: BUN 8 mg/dL (7-18) 09/30/20 06:45 Creatinine 0.6 mg/dL (0.55-1.02) 09/30/20 06:45 Medications needing adjustments: N/A (CrCl~76.07 ml/min) - Anticoagulation Anticoagulation: Hgb 11.2 g/dL (11.2-15.7) 09/30/20 06:45 Hct 33.8 % (36.0-46.0) L 09/30/20 06:45 Plt Count 163 10^3/uL (130-400) 09/30/20 06:45 Creatinine 0.6 mg/dL (0.55-1.02) 09/30/20 06:45 DVT Prophylaxis: Reviewed Medications: Enoxaparin Therapeutic Anticoagulation: N/A - Opiate Usage Evaluate Pain Scale/Pains Meds: Reviewed Scheduled Bowel Reg ordered if on Opiates?: No (prn ordered) - Relevant Labs Sodium 142 mmol/L (136-145) 09/30/20 06:45 Potassium 3.7 mmol/L (3.5-5.1) 09/30/20 06:45 Chloride 109 mmol/L (98-107) H 09/30/20 06:45 Electrolytes, C-Reactive P, ESR: Reviewed - DM Control DM Control: Glucose 100 mg/dL (74-106) 09/30/20 06:45 Insulin Dosing: N/A - Heart Failure/CO EF%, TOYA's, B-Blockers, Diuretics: N/A - BP Control BP Control: Blood Pressure 92/56 Blood Pressure 86/56 Blood Pressure 90/53 If elevated: N/A - Qtc Review If Elevated: N/A (No EKG on record) - IV to PO Switch IV Medications: Reviewed - Home Meds Home Med List reviewed: Reviewed - Current meds Current Medication Order Review: Intervened (Removed duplicate orders and DI med.) - Comments Comments/Follow Ups: Monitor VS, labs, and medication changes. Watch for pending culture results. Antibiotic Activity - Pharmacy Antibiotic Review Pharmacy Antibiotic Activity: Reviewed, no change (Ceftriaxone ordered, culture results pending)
[2020-09-30] MEDS: MORPHine 4 MG/ML SYR IVP (14:39)
[2020-09-30] MEDS: Normal Saline Flush 10 ML SYR IVP (14:40)
[2020-09-30 16:00] VITALS: BP 100/66; PULSE 70; RESP 16; TEMP 36.9; O2SAT 100
[2020-10-01 00:53] VITALS: BP 89/56; PULSE 86; RESP 16; TEMP 36.5; O2SAT 100
[2020-10-01 08:02] VITALS: BP 93/62; PULSE 68; RESP 17; TEMP 36; O2SAT 100
[2020-10-01] MEDS: Enoxaparin 40 MG/0.4 ML SYR SC (08:40)
[2020-10-01] MEDS: cefTRIAXone 1 GM/50 ML BAG IVPB (08:41)
--- NOTE | 2020-10-01 11:47 | DSE_ITS ---
Date of service: 10/01/20 Time of Service: 11:47 DS: Diagnosis Discharge Diagnosis (1) Pyelonephritis: Status: Acute Discharge Plan Disposition Patient Disposition: HOME Condition: Improving Discharge Details Reason For Visit: Pylonephritis,Fever,Back Pain Admit Date/Time: 09/29/20 18:19 Admit Provider: Sami Buchanan Attending Provider: Sami Buchanan Primary Care Provider: Madhavi Hernandez Hospital Course Hospital Course: This is a 45 year old female with no significant medical history who was started on ciprofloxacin for UTI who presented to the ED for fever, flank pain and positive urine not likely a failure of ciprofloxacin since she essentially had only one dose prior to admission. CT abd/pelvis showed abnormal right renal nephrogram with foci of low attenuation in the anterior and posterior renal cortex, suggestive of pyelonephritis. She was placed on ceftriaxone and admitted to med/surg under observation for further symptoms management and IV fluids. Her culture grew pansensitive e coli. she continued to improve, no longer febrile. She was drinking well but appetite still decreased but tolerating PO. She will be discharged to complete her course of ciprofloxacin and in total will have received 12 days of antibiotic treatment. she should follow up with primary care provider or return sooner for new or worsening symptoms. discussed with Dr Nagy [place] Meds and New Rx's Prescriptions: New Bio-K plus 50 billion cell capsule,delayed release(DR/EC) 1 cap PO DAILY Qty: 20 RF: 0 Continued ibuprofen [Advil] 200 mg Tablet 400 mg PO PRN PRNRF: 0 ciprofloxacin HCl [Cipro] 500 mg Tablet 500 mg PO BID RF: 0 Discharge Instructions Instructions: Kidney Infection (DC) Additional Instructions: finish your ciprofloxacin as prescribed even if you feel better. drink at least 6-8 glasses of water daily to stay well hydrated. report new or worsening symptoms immediately Stand Alone Forms: Nursing Discharge Form Referrals: Madhavi Hernandez [Primary Care Provider] - 10/22/20 10:45 am Activity:: Activity as Tolerated Equipment/Supplies:: No Equipment Needed Diet:: As Tolerated Discharge Orders Discharge Orders: Discharge Order (Routine); Ordered 10/01/20 Ordered By: Taryn Galeas DS: Summary Time Spent with Patient providing and/or coordinating discharge services: Less than 30 minutes Status at Discharge Functional status at discharge: independent ambulation Overall status at discharge: patient is progressing back to baseline Mental Status: mental status grossly normal Speech and Movement: speech and movement normal Mood: congruent mood Affect: normal affect Exam Const General: cooperative and no acute distress Nutritional Appearance: thin Orientation: alert and oriented x3 Neck Neck: full ROM Resp Effort & Inspection: normal respiratory effort Auscultation: clear to auscultation bilaterally Cardio Rate: regular rate Rhythm: regular rhythm Heart Sounds: S1 normal and S2 normal GI Palpation: soft and nontender Auscultation: normal bowel sounds Back/Spine/Pelvis Back: no CVA tenderness Skin General skin exam: no rashes or lesions noted Extrem General: no pedal edema and no calf tenderness Psych Mental Status: mental status grossly normal Speech and Movement: speech and movement normal Mood: congruent mood Affect: normal affect DS: Data Vitals/I&O Vitals and I&O: Vital Signs Temperature 36.0 C L 10/01/20 08:02 Temperature Source Tympanic 10/01/20 08:02 Pulse 68 10/01/20 08:02 Pulse Rhythm Regular 10/01/20 11:12 Respiratory Rate 17 10/01/20 08:02 Respiratory Effort 10/01/20 11:12 Respiratory Depth Normal 10/01/20 11:12 Respiratory Pattern Normal 10/01/20 11:12 Blood Pressure 93/62 L 10/01/20 08:02 Pulse Oximetry 100 10/01/20 08:02 Oxygen Delivery Method Room Air 10/01/20 08:02 Oxygen Flow Rate 0 10/01/20 08:02 Pain Level 0 10/01/20 00:53 Comment 09/30/20 01:00 Intake & Output 09/30/20 09/30/20 10/01/20 11:59 23:59 11:59 Intake Total / 2192. 200 / 219.75 50 / 50 Output Total 1500 / 1500 Balance 493.75 / 693.75 200 / 693.75 50 / 50 Weight 53.97 kg Intake: IV / 50 / 50 Oral 200 / 200 Output: Urine 1500 / 1500 Other: Urine Color March Urine Appearance Clear Clear Clear Urine Odor Normal Comment Patient is currently on her period. Voiding Methods Toilet [facility] Medical History Pyelonephritis Surgical History H/O section Social History Smoking/Tobacco Use Status: Never Smoking risk assessment performed?: Yes Alcohol Intake: never Drug use: Never Substance use type: does not use Do you feel safe at home: Yes Do you feel safe in your relationship?: Yes
--- NOTE | 2020-10-01 14:06 | PDOC.CMDIS ---
- If Service Date Differs Date of service: 10/01/20 Time of Service: 14:06 LACE Index Scoring Tool - Questions: Length of Stay (in days): 2 Acuity (Admit via E.D.?): Yes E.D. Visits: 1 - Answers: Total Score: 6 Risk of Readmission: Low Risk Care Management Discharge Reason for Hospitalization: Pylonephritis, Fever, Back Pain Discharge Plan: Discharge to home via private vehicle. Finish antibiotic, drink 6-8 glasses of water daily and report new or worsening symptoms. Follow up with your PCP on 10/22/20. Patient/Family Education Needs: Review of discharge instructions and plan to follow up with out patient providers. ask me three'.
== END 2020-10-01 13:53 | disposition home or self-care (01) ==
LOC: ER 18:34 → MS 19:48
PROVIDERS: Admitting Provider Family Medicine; Emergency Provider Physician Assistant; PCP Nurse Practitioner Family; Visit Provider Family Medicine
DX: N10 Acute pyelonephritis (principal); Z20.822 Contact with and (suspected) exposure to COVID-19
CPT/HCPCS: 36415; 80048; 80053; 81025; 83690; 87635; 96361; 96365; 96367; 96375; 99285; J1650; 74177; 81003; 81015; 85025; 87086; 99217; 99219; G0378; J0131; J0696; J1885; J2270; J3490

== ENCOUNTER 2021-08-01 15:12 | Outpatient (REF) | payer MEDICAID, SELFPAY ==
[2021-08-03 12:03] LABS: COVID-19 RT-PCR UVMMC Result Negative (Negative)
== END 2021-08-01 15:13 | disposition home or self-care (01) ==
LOC: NCHCN 15:12
PROVIDERS: PCP Nurse Practitioner Family; Visit Provider Family Medicine
DX: Z20.822 Contact with and (suspected) exposure to COVID-19 (principal); R05.8 Other specified cough
CPT/HCPCS: U0003

== ENCOUNTER 2022-02-17 11:20 | Outpatient (REF) | payer MEDICAID, SELFPAY ==
[2022-02-17 15:51] LABS: HCT 39.1 % (36.0-46.0); MCH 28.1 pg (27.0-33.0); MCHC 33.2 % (32.0-36.0); MCV 85 fL (80-95); MPV 11.5 fL (8.0-11.0); Platelet Count 221 10^3/uL (130-400); RBC 4.62 10^6/uL (3.93-5.22); RDW 13.2 % (11.7-14.6); RDW-SD 40.9 fL; WBC 2.89 10^3/uL (4.4-10.8)
[2022-02-17 16:01] LABS: Anion Gap 5.7 mmol/L (3-11); BUN 11 mg/dL (7-18); CO2 30.3 mmol/L (21.0-32.0); CREATININE 0.7 mg/dL (0.55-1.02); Calcium 8.6 mg/dL (8.5-10.1); Calculated LDL 79 mg/dL (<100); Chloride 105 mmol/L (98-107); Cholesterol 151 mg/dL (<200); Estimated GFR 107.95 (mL/min/1.73m2); Glucose 93 mg/dL (74-106); HDL Cholesterol 61 mg/dL (40-60); Potassium 3.6 mmol/L (3.5-5.1); Sodium 141 mmol/L (136-145); Triglyceride 55 mg/dL (<150)
== END 2022-02-17 11:21 | disposition home or self-care (01) ==
LOC: NCHCN 11:20
PROVIDERS: PCP Nurse Practitioner Family; Visit Provider Nurse Practitioner Family
DX: Z13.220 Encounter for screening for lipoid disorders (principal); Z13.228 Encounter for screening for other metabolic disorders; Z13.0 Encounter for screening for diseases of the blood and blood-forming organs and certain disorders involving the immune mechanism; Z00.00 Encounter for general adult medical examination without abnormal findings
CPT/HCPCS: 80048; 80061; 85027

== ENCOUNTER 2022-02-22 09:55 | Outpatient (REF) | payer MEDICAID, SELFPAY ==
[2022-02-22 15:11] LABS: Abs Immature Grans 0.01 10^3/uL (0.0-0.06); Absolute Basophil Count 0.01 10^3/uL (0.0-0.2); Absolute Eosinophil Count 0.26 10^3/uL (0.0-0.7); Absolute Lymphocyte Count 1.46 10^3/uL (1.2-3.4); Absolute Monocyte Count 0.36 10^3/uL (0.1-0.8); Absolute Neutrophil Count 1.84 10^3/uL (1.2-6.7); Basophils % 0.3; Eosinophils % 6.6; HCT 39.3 % (36.0-46.0); Immature Grans % 0.3; Lymphocytes % 37.1; MCH 28.1 pg (27.0-33.0); MCHC 33.1 % (32.0-36.0); MCV 85 fL (80-95); MPV 11.2 fL (8.0-11.0); Monocytes % 9.1; Neutrophils % 46.6; Platelet Count 196 10^3/uL (130-400); RBC 4.62 10^6/uL (3.93-5.22); RDW 13.2 % (11.7-14.6); RDW-SD 41.3 fL; WBC 3.94 10^3/uL (4.4-10.8)
== END 2022-02-22 09:56 | disposition home or self-care (01) ==
LOC: NCHCN 09:55
PROVIDERS: PCP Nurse Practitioner Family; Visit Provider Nurse Practitioner Family
DX: D72.819 Decreased white blood cell count, unspecified (principal)
CPT/HCPCS: 85025

== ENCOUNTER 2022-03-08 01:02 | Outpatient (CLI) | payer MEDICAID, SELFPAY ==
--- NOTE | 2022-03-08 11:44 | DI.MAMMO_ITS ---
Exam(s) MAMMO SCREENING EXAM: MAMMO SCREENING CLINICAL HISTORY: SCREENING, Z12.39. TECHNIQUE: Bilateral full field digital CC and MLO mammographic images were obtained with 3D tomosyn thesis and utilizing computer aided detection (CAD). COMPARISON: 2009 FINDINGS: Masses/Architectural Distortion: None seen. Microcalcifications: No suspicious pleomorphic-type are seen. Skin Thickening/Nipple Retraction: None. IMPRESSION: 1. No significant interval change with no specific features of malignancy noted. 2. Unless there is more urgent need, annual screening mammography is recommended, as per [place] [employer] guidelines. BI-RADS Category 1-negative Breast Density - Category D - extremely dense Breast Density Category D: The mammogram demonstrates the patient's breast tissue is dense. Dense karlie ast tissue is very common and is not abnormal but dense breast tissue can make it harder to find canc er on a mammogram. Also, dense breast tissue may increase their breast cancer risk. This information about the result of the mammogram report was provided to the patient to raise their awareness. Use th is report when you speak with the patient about their risks for breast cancer, which includes their f amily history. At that time, you may recommend for more screening tests (Ultrasound or MRI) as they m ight be useful based on their risk. A negative radiographic report should not delay biopsy if a dominant or clinically suspicious mass is present. Up to ten percent of cancers are not identified on mammography. A negative report may reinforce clinical impression. Adenosis and dense breasts may obscure an underlying neoplasm. False positive reports average 6 to 10%.
== END 2022-03-08 01:22 ==
LOC: DI 01:03
PROVIDERS: PCP Nurse Practitioner Family; Visit Provider Nurse Practitioner Family
DX: Z12.31 Encounter for screening mammogram for malignant neoplasm of breast (principal)
CPT/HCPCS: 77063; 77067

== ENCOUNTER → 2023-03-13 01:45 | Outpatient (CLI) | payer MEDICAID, SELFPAY ==
--- NOTE | 2023-03-13 08:45 | DI.MAMMO_ITS ---
Exam(s) MAMMO SCREENING EXAM: MAMMO SCREENING CLINICAL HISTORY: SCREENING, Z12.39. TECHNIQUE: Bilateral full field digital CC and MLO mammographic images were obtained with 3D tomosyn thesis and utilizing computer aided detection (CAD). COMPARISON: Prior mammograms were reviewed. FINDINGS: There has been no significant change in the appearance and distribution of the fibroglandular tissue which is again noted be very dense. No CAD designations. There are no obvious new spiculated masses nor malignant appearing microcalcification groups. There is no new significant architectural distortion nor skin thickening-retraction. IMPRESSION: Dense bilateral fibroglandular tissue. No obvious radiographic evidence of malignancy. BI-RADS Category 1 - Negative Breast Density - Category D - Extremely dense Breast density Category C or D implies that the patient has dense breast tissue. Dense breast tissue can make it harder to find cancer on a mammogram. Dense breast tissue is also associated with an incr eased risk of breast cancer. This information about the result of the mammogram report was provided to the patient to raise their awareness. Use this report when you speak with the patient about their risks for breast cancer, which includes their family history. At that time, you may recommend additional screening tests (Ultrasoun d or MRI) as these tests may add significant information. A negative radiographic report should not delay biopsy if a dominant or clinically suspicious mass is present. Up to ten percent of cancers are not identified on mammography. A negative report may reinforce clinical impression. Adenosis and dense breasts may obscure an underlying neoplasm. False positive reports average 6 to 10%. Patient will receive a letter notifying them of these results.
== END ==
PROVIDERS: PCP Nurse Practitioner Family; Visit Provider Nurse Practitioner Family
DX: Z12.31 Encounter for screening mammogram for malignant neoplasm of breast (principal)
CPT/HCPCS: 77063; 77067

== ENCOUNTER 2023-06-29 11:54 | Outpatient (REF) | payer MEDICAID, SELFPAY ==
--- NOTE | 2023-06-29 10:10 | PAPFT_PTH ---
PATIENT: Juan M Barfield LOC: [facility] U#:[id number] AGE/SX: 48/F ROOM: RE06/29/[address]: LIA MIDDLETON : 1975 BED: DIS: 06/29/2023 SPEC #: [id number] RECD: 07/02/23 13:33 STATUS: ANISA REQ #: [id number] VANESSA: 06/29/23 10:[address]: Lia Middleton DEPT: [facility] Cytology RECD BY: Lauren Collins Tissues: 1 - CX/ENDOCX FOR PAP SMEARS Procedures: PAP THIN PREP/UVM Screening HPV DNA PROBE Comments: [id number]
[2023-06-29 18:44] LABS: Abs Immature Grans 0.01 10^3/uL (0.0-0.06); Absolute Basophil Count 0.03 10^3/uL (0.0-0.2); Absolute Eosinophil Count 0.66 10^3/uL (0.0-0.7); Absolute Monocyte Count 0.35 10^3/uL (0.1-0.8); Basophils % 0.8 %; Eosinophils % 17.3 %; HCT 41.3 % (36.0-46.0); HGB 13.7 g/dL (11.2-15.7); Immature Grans % 0.3 %; Lymphocytes % 39.3 %; MCH 27.8 pg (27.0-33.0); MCHC 33.2 % (32.0-36.0); MCV 84 fL (80-95); MPV 11.8 fL (8.0-11.0); Monocytes % 9.2 %; Neutrophils % 33.1 %; Platelet Count 275 10^3/uL (130-400); RBC 4.93 10^6/uL (3.93-5.22); RDW 13.2 % (11.7-14.6); RDW-SD 40.3 fL; WBC 3.82 10^3/uL (4.4-10.8)
[2023-06-29 18:48] LABS: Absolute Neutrophil Count 1.26 10^3/uL (1.2-6.7)
[2023-06-29 19:00] LABS: ALT 30 U/L (14-59); AST 24 U/L (15-37); Albumin 3.8 g/dL (3.4-5.0); Alkaline Phosphatase 54 U/L (46-116); BUN 12 mg/dL (7-18); Bilirubin, Total 0.4 mg/dL (0.2-1.0); CREATININE 0.8 mg/dL (0.55-1.02); Calcium 8.9 mg/dL (8.5-10.1); Calculated LDL 59 mg/dL (<100); Chloride 105 mmol/L (98-107); Cholesterol 130 mg/dL (<200); Glucose 93 mg/dL (74-106); HDL Cholesterol 58 mg/dL (40-60); Sodium 140 mmol/L (136-145); Total Protein 8.2 g/dL (6.4-8.2); Triglyceride 66 mg/dL (<150)
[2023-06-29 19:08] LABS: Hemoglobin A1C 6.1 % (<5.7)
== END 2023-06-29 11:55 | disposition home or self-care (01) ==
LOC: NCHCN 11:54
PROVIDERS: PCP Nurse Practitioner Family; Visit Provider Nurse Practitioner Family
DX: Z00.00 Encounter for general adult medical examination without abnormal findings (principal); Z12.4 Encounter for screening for malignant neoplasm of cervix; Z11.51 Encounter for screening for human papillomavirus (HPV); Z01.419 Encounter for gynecological examination (general) (routine) without abnormal findings; Z13.6 Encounter for screening for cardiovascular disorders; Z13.1 Encounter for screening for diabetes mellitus; D72.819 Decreased white blood cell count, unspecified
CPT/HCPCS: 80053; 80061; 88142; 83036; 85025; 87624

== ENCOUNTER → 2023-07-05 02:52 | Outpatient (CLI) | payer MEDICAID, SELFPAY ==
--- NOTE | 2023-07-05 | DI.RAD_ITS ---
Exam(s) XR CHEST 2V PA LATERAL EXAM: XR CHEST 2V PA LATERAL CLINICAL HISTORY: R05.3 Chronic cough. TECHNIQUE: 2D digital imaging was performed. COMPARISON: No exams were available for comparison FINDINGS: 2 views: Heart size is normal. The mediastinum is not widened. Lungs are clear. No infiltrates nor pleural effusions. IMPRESSION: No acute pulmonary findings. DATA REPOSITORY: RADIATION DOSE DELIVERED:
--- NOTE | 2023-07-05 07:10 | DI.US_ITS ---
Exam(s) US PELVIS TRANSVAGINAL EXAM: US PELVIS TRANSVAGINAL CLINICAL HISTORY: R10.2 Pelvic and perineal pain, also enlarged uterus on exam w/pap TECHNIQUE: Ultrasound of the pelvis was performed both transabdominal and transvaginal. COMPARISON: US RENAL ULTRASOUND(P) from 08/07/2017 FINDINGS: UTERUS: Measures 10 cm length x 5 cm AP x 7 cm wide. There are no uterine fibroids. Endometrial thickness measures 6 mm. There is no fluid in the endometrial canal. CERVIX: There are no obvious nabothian cysts. RIGHT OVARY: Measures 1.6 x 0.9 x 1.3 cm No significant cysts nor masses evident in the right ovary. LEFT OVARY: Left ovary was not able to be identified on today's study. CUL-DE-SAC: No free fluid evident. IMPRESSION: 1. Normal appearing uterus and age-appropriate endometrium. 2. Right ovary appears unremarkable. Left ovary was not able to be identified 3. No free fluid evident in the adnexal regions and cul-de-sac. DATA REPOSITORY:
== END ==
PROVIDERS: PCP Nurse Practitioner Family; Visit Provider Nurse Practitioner Family
DX: R10.2 Pelvic and perineal pain (principal); R05.3 Chronic cough
CPT/HCPCS: 71046; 76830; 76856

== ENCOUNTER 2024-12-08 11:11 | Outpatient (REF) | payer MEDICAID, SELFPAY ==
[2024-12-08 15:34] LABS: HCT 35.6 % (36.0-46.0); HGB 11.4 g/dL (11.2-15.7); MCH 25.9 pg (27.0-33.0); MCHC 32.0 % (32.0-36.0); MCV 81 fL (80-95); MPV 10.9 fL (8.0-11.0); Platelet Count 247 10^3/uL (130-400); RBC 4.41 10^6/uL (3.93-5.22); RDW 14.8 % (11.7-14.6); RDW-SD 43.8 fL; WBC 2.91 10^3/uL (4.4-10.8)
[2024-12-08 15:46] LABS: Hemoglobin A1C 5.7 % (<5.7)
[2024-12-08 16:45] LABS: ALT 25 U/L (14-59); AST 18 U/L (15-37); Albumin 3.8 g/dL (3.4-5.0); Alkaline Phosphatase 56 U/L (46-116); Anion Gap 8.1 mmol/L (3-11); BUN 9 mg/dL (7-18); Bilirubin, Total 0.4 mg/dL (0.2-1.0); CO2 27.9 mmol/L (21.0-32.0); Calcium 8.6 mg/dL (8.5-10.1); Calculated LDL 80 mg/dL (<100); Chloride 105 mmol/L (98-107); Cholesterol 151 mg/dL (<200); Estimated GFR 110.65 (mL/min/1.73m2); Glucose 92 mg/dL (74-106); HDL Cholesterol 57 mg/dL (>or=50); Potassium 4.0 mmol/L (3.5-5.1); Sodium 141 mmol/L (136-145); Total Protein 7.4 g/dL (6.4-8.2); Triglyceride 72 mg/dL (<150)
[2024-12-09 18:06] LABS: HIV-1/2 Ag & Ab Screen Negative (Negative)
[2024-12-09 18:08] LABS: Hepatitis C Ab w Rflx HCV PCR Negative (Negative)
== END 2024-12-08 11:12 | disposition home or self-care (01) ==
LOC: NCHCN 11:11
PROVIDERS: PCP Nurse Practitioner Family
DX: Z00.00 Encounter for general adult medical examination without abnormal findings (principal); Z13.1 Encounter for screening for diabetes mellitus
CPT/HCPCS: 80053; 80061; 85027; 86803; 87389; 83036

== ENCOUNTER 2024-12-09 00:53 | Outpatient (CLI) | payer MEDICAID, SELFPAY ==
--- NOTE | 2024-12-09 08:22 | DI.MAMMO_ITS ---
Exam(s) MAMMO SCREENING EXAM: MAMMO SCREENING CLINICAL HISTORY: SCREENING,Z12.31. TECHNIQUE: Bilateral full field digital CC and MLO mammographic images were obtained with 3D tomosynthesis and utilizing computer aided detection (CAD). COMPARISON: Prior mammograms were reviewed. FINDINGS: Fibroglandular tissue pattern is again noted be dense bilaterally. There are no obvious new spiculated masses nor malignant appearing microcalcification groups. There is no significant architectural distortion nor skin thickening-retraction. IMPRESSION: No radiographic evidence of malignancy. Dense bilateral fibroglandular tissue. BI-RADS Category 1 - Negative Breast Density - Category D - The breast are extremely dense, which lowers the sensitivity of the mammography. Breast density Category C or D implies that the patient has dense breast tissue. Dense breast tissue can make it harder to find cancer on a mammogram. Dense breast tissue is also associated with an increased risk of breast cancer. This information about the result of the mammogram report was provided to the patient to raise their awareness. Use this report when you speak with the patient about their risks for breast cancer, which includes their family history. At that time, you may recommend additional screening tests (Ultrasound or MRI) as these tests may add significant information. A negative radiographic report should not delay biopsy if a dominant or clinically suspicious mass is present. Up to ten percent of cancers are not identified on mammography. A negative report may reinforce clinical impression. Adenosis and dense breasts may obscure an underlying neoplasm. False positive reports average 6 to 10%. Patient will receive a letter notifying them of these results.
== END 2024-12-09 01:13 ==
PROVIDERS: PCP Nurse Practitioner Family
DX: Z12.31 Encounter for screening mammogram for malignant neoplasm of breast (principal); R92.323 Mammographic fibroglandular density, bilateral breasts
CPT/HCPCS: 77063; 77067

== ENCOUNTER 2025-01-12 12:36 | Outpatient (REF) | payer MEDICAID, SELFPAY ==
[2025-01-12 15:52] LABS: ESR 15 mm/hr (0-20)
[2025-01-12 23:07] LABS: CRP, High Sensitivity <0.34 mg/L (See Note)
== END 2025-01-12 12:37 | disposition home or self-care (01) ==
LOC: NCHCN 12:36
PROVIDERS: PCP Nurse Practitioner Family
DX: R68.2 Dry mouth, unspecified (principal)
CPT/HCPCS: 85652; 86141; 86038